=== PATIENT | male | born 1960 | race Caucasian/White ===

== ENCOUNTER 2017-06-01 08:46 | Day surgery (SDC) | payer OTHER ==
[~2017-06-01 08:46] MED LIST: KETOROLAC TROMETHAMINE 0.45% 4 DROP/0.4 ML DROPERETTE OS PRN; MIDAZOLAM 2 MG/2 ML INJ ONE
[2017-06-01] MEDS ORDERED: LIDOCAINE 1% INJ-PF (10 MG/ML) 30 ML SDV ONE (09:43)
[2017-06-01] MEDS ORDERED: PHENYLEPHRINE/KETOROLAC 1%-0.3% 4 ML VIAL ONE (09:43)
[2017-06-01] MEDS ORDERED: CHONDR SU A NA/HYALUR INTRAOC KIT (SURGICARE) ONE (09:43)
[2017-06-01] MEDS ORDERED: TRYPAN BLUE 0.06 % OPH SOLN 0.5 ML DISP.SYRIN ONE (09:48)
[2017-06-01] MEDS ORDERED: EPINEPHRINE INJ/PF 1 MG/1 ML AMPULE ONE (09:49)
[2017-06-01] MEDS: CYCLOPENTOLATE 0.2%/PHENYLEPHRINE 1% OPH SOLN 2 ML OS PRN ×3 (09:56→10:26)
[2017-06-01] MEDS: TROPICAMIDE 1% OPH SOLN 3 ML OS PRN ×3 (09:56→10:26)
[2017-06-01] MEDS: BESIFLOXACIN HCL 0.6% OPH SUSP 5 ML BOTTLE OS PRN ×4 (09:57→10:57)
[2017-06-01] MEDS: TETRACAINE HCL 0.5% OPH SOLN 2 ML OS PRN ×3 (09:58→10:36)
--- NOTE | 2017-06-01 12:03 | [facility] DISCHARGE SUMMARY E ---
[facility] Discharge Summary NAME: ZARINA LANDA AGE: 56Y ADMITTED: 06/01/2017 DISCHARGED: 06/01/2017 HOSPITAL COURSE: This is a 56-year-old male who underwent cataract extraction of the left eye. DIAGNOSIS: Cataract, left eye. INDICATIONS: He underwent surgery because he was having difficulty driving at night and difficulty seeing small print. DISCHARGE INSTRUCTIONS: He should be on a regular diet. No bending at his waist. No heavy lifting. He should use his Besivance, Ilevro, and Durezol at 3 p.m. and 8 p.m. and sleep with a rigid shield. I will see him for his 1 day postoperative tomorrow. DICTATING PHYSICIAN: BRANDON KWONG M.D. 1211M 1158 PHY#: [id number] ID: [id number] JOB#: [id number] ACCT: [id number] cc:BRANDON KWONG M.D. >
--- NOTE | 2017-06-01 12:03 | [facility] OPERATIVE REPORT E ---
[facility] Operative Report NAME: ZARINA LANDA AGE: 56Y DATE OF SURGERY: 06/01/2017 ROOM: PREOPERATIVE DIAGNOSIS: CATARACT, LEFT EYE. POSTOPERATIVE DIAGNOSIS: CATARACT, LEFT EYE. OPERATION: Cataract extraction with intraocular lens implant of the left eye. SURGEON: BRANDON KWONG M.D. ANESTHESIA: Topical. PROCEDURE: After obtaining appropriate consent, the patient's left eye was prepped and draped in sterile fashion as well as the surgeon in a sterile manner and cataract surgery was started. First a paracentesis blade was used to make a small side-port incision. Viscoelastic was used to inflate the anterior chamber. Next a 2.4 mm incision was made with the paracentesis blade. A continuous capsulorrhexis incision was made using a cystotome and Utrata forceps. Following this hydrodissection was carried out to make the lens fully loose and mobile and it was rotated 90 degrees. Following this, a tsvksp-lbk-rpfzded technique was used to phacoemulsify the lens with a CDE of 18.36. The remaining cortex was removed with irrigation/aspiration. Provisc was instilled into the capsular bag to inflate the bag. A SN60WF, 18.5 diopter lens was placed. The remaining viscoelastic material was removed with irrigation/aspiration. Following this, a 10-0 nylon suture was used to close the incision and it was found to be watertight. Vigamox was instilled in the eye and a protective shield was placed over the eye. The patient returned to the postoperative recovery in stable condition. DICTATING PHYSICIAN: BRANDON KWONG M.D. 1211M 1157 PHY#: [id number] ID: [id number] JOB#: [id number] ACCT: [id number] cc:BRANDON KWONG M.D. >
== END 2017-06-01 11:40 | disposition home or self-care (01) ==
LOC: SC 08:46
PROVIDERS: ATTEND Internal Medicine
PROC: 08RK3JZ Replacement of Left Lens with Synthetic Substitute, Percutaneous Approach (ICD-10-PCS; principal; 2017-06-01 10:30)
DX: H25.89 Other age-related cataract (principal); M06.9 Rheumatoid arthritis, unspecified; M19.90 Unspecified osteoarthritis, unspecified site; F17.210 Nicotine dependence, cigarettes, uncomplicated; H25.11 Age-related nuclear cataract, right eye; I10 Essential (primary) hypertension; Z79.82 Long term (current) use of aspirin
CPT/HCPCS: 66984; V2632; J2250; J3490 ×2; 142; C9447; J0171

== ENCOUNTER 2018-06-07 06:27 | Day surgery (SDC) | payer OTHER ==
[~2018-06-07 06:27] MED LIST changes: +KETOROLAC TROMETHAMINE 0.45% 4 DROP/0.4 ML DROPERETTE OD PRN; -KETOROLAC TROMETHAMINE 0.45% 4 DROP/0.4 ML DROPERETTE OS PRN; -MIDAZOLAM 2 MG/2 ML INJ ONE
[2018-06-07] MEDS: TETRACAINE HCL 0.5% OPH SOLN 4 ML OD PRN ×3 (06:55→07:33)
[2018-06-07] MEDS: BESIFLOXACIN HCL 0.6% OPH SUSP 5 ML BOTTLE OD PRN ×4 (06:55→07:50)
[2018-06-07] MEDS: TROPICAMIDE 1% OPH SOLN 3 ML OD PRN ×3 (06:55→07:20)
[2018-06-07] MEDS: CYCLOPENTOLATE 0.2%/PHENYLEPHRINE 1% OPH SOLN 2 ML OD PRN ×3 (06:55→07:20)
[2018-06-07] MEDS ORDERED: MIDAZOLAM 2 MG/2 ML INJ ONE (07:06)
[2018-06-07] MEDS ORDERED: FENTANYL CITRATE INJ/PF 100 MCG/2 ML AMPUL ONE (07:07)
[2018-06-07] MEDS ORDERED: EPINEPHRINE INJ/PF 1 MG/1 ML AMPULE ONE (07:11)
[2018-06-07] MEDS ORDERED: LIDOCAINE 1% INJ-PF (10 MG/ML) 30 ML SDV ONE (07:11)
[2018-06-07] MEDS ORDERED: CHONDR SU A NA/HYALUR INTRAOC KIT (SURGICARE) ONE (07:11)
--- NOTE | 2018-06-07 16:06 | [facility] OPERATIVE REPORT E ---
[facility] Operative Report NAME: ZARINA LANDA AGE: 57Y DATE OF SURGERY: 06/07/2018 ROOM: PREOPERATIVE DIAGNOSIS: CATARACT, RIGHT EYE. POSTOPERATIVE DIAGNOSIS: CATARACT, RIGHT EYE. OPERATION: Cataract extraction with insertion of an IOL of the right eye. SURGEON: BRANDON KWONG M.D. ANESTHESIA: Topical. PROCEDURE: After obtaining appropriate consent, the patient's right eye was prepped and draped in sterile fashion as well as the surgeon in a sterile manner and cataract surgery was started. First a paracentesis blade was used to make a side-port incision. Viscoelastic was used to inflate the anterior chamber. Next a 2.4 mm incision was made with a 2.4 mm blade, clear corneal temporally. A continuous capsulorrhexis was made using a cystotome and Utrata forceps. Following this hydrodissection was carried out to make the lens fully loose and mobile and it was rotated 90 degrees. Following this, a ibqjnk-ihp-kunglou technique was used to phacoemulsify the lens with a CDE of 7.08. The remaining cortex was removed with irrigation/aspiration. Provisc was instilled into the capsular bag to inflate the bag. A SN60WF, 19.0 diopter lens was placed. The remaining viscoelastic material was removed with irrigation/aspiration. Following this, the incision was found to be watertight. Besivance was instilled into the eye and a protective shield was placed over the eye. The patient returned to the postoperative recovery in stable condition. DICTATING PHYSICIAN: BRANDON KWONG M.D. 1209M 1603 PHY#: [id number] ID: [id number] JOB#: [id number] ACCT: [id number] cc:BRANDON KWONG M.D. >
--- NOTE | 2018-06-07 16:07 | [facility] DISCHARGE SUMMARY E ---
[facility] Discharge Summary NAME: ZARINA LANDA AGE: 57Y ADMITTED: 06/07/2018 DISCHARGED: 06/07/2018 DIAGNOSIS: CATARACT, RIGHT EYE. SUMMARY: This is a 57-year-old male who underwent cataract extraction, right eye. He underwent the surgery because he was having trouble driving at night secondary to glare from headlights. DISCHARGE INSTRUCTIONS: He should be on a regular diet, no bending at his waist, and no heavy lifting. He should use his Vigamox, Ilevro, Durezol at 3 p.m. and 8 p.m. and sleep with a rigid shield. I will see him for his same-day postoperative later this afternoon. DICTATING PHYSICIAN: BRANDON KWONG M.D. 1209M 1604 PHY#: [id number] ID: [id number] JOB#: [id number] ACCT: [id number] cc:BRANDON KWONG M.D. >
== END 2018-06-07 08:31 | disposition home or self-care (01) ==
LOC: SC 06:27
PROVIDERS: ATTEND Internal Medicine
DX: H25.11 Age-related nuclear cataract, right eye (principal); Z96.1 Presence of intraocular lens; M19.90 Unspecified osteoarthritis, unspecified site; F17.210 Nicotine dependence, cigarettes, uncomplicated; M10.9 Gout, unspecified; I10 Essential (primary) hypertension; Z79.82 Long term (current) use of aspirin; Z79.899 Other long term (current) drug therapy
CPT/HCPCS: 66984; V2632; J2250; J3490 ×3; J0171; J3010